=== PATIENT | female | born 1990 | race Caucasian/White ===

== ENCOUNTER 2019-04-05 09:06 | Emergency (ER) | payer MEDICAID ==
[~2019-04-05] VITALS: Ht 154.9 cm; Wt 48.2 kg
[~2019-04-05 09:06] MED LIST: CEPH-443 PO; HDRP454O TOP; PRENAT PO
[2019-04-05 09:10] VITALS: BP 97/54; PULSE 71; RESP 18; Ht 154.9 cm; Wt 48.2 kg
[2019-04-05] MEDS ORDERED: TETRACAINE 0.5% 4 ML OPH LEFT EYE ONE (10:00)
[2019-04-05] MEDS ORDERED: FLUORESCEIN STRIP LEFT EYE ONE (10:00)
[2019-04-05] MEDS ORDERED: POLY10DR19 LEFT EYE (10:49)
[2019-04-05] MEDS ORDERED: IBUP-1561 PO (10:49)
[2019-04-05] MEDS ORDERED: ERYT1OIN6 LEFT EYE (10:54)
[2019-04-05] MEDS ORDERED: ACET325T33 PO (11:19)
--- NOTE | 2019-04-05 14:27 | ERD ---
ER Documentation Chief Complaint Chief Complaint c/o left eye redness, eyelid swelling with itching for 4 days HPI This is a 28-year-old female patient who presents the emergency room with complaint of left eyelid redness that has increased in severity over 4 days. Started with itching to eyelid and now has redness and swelling. Patient denies any visual disturbance such as blurred vision, double vision, pain. Patient states eyelid is painful but does not feel like there is anything in her eye and no pain to her eyeball. Patient is 4 months . ROS All systems reviewed and are negative except as per history of present illness. Medications Home Meds Active Scripts Acetaminophen* (Tylenol*) 325 Mg Tablet, 2 TAB PO Q6 PRN for PAIN AND OR ELEVATED TEMP, #20 TAB Prov:MICHELLE RAND NP 04/05/19 Erythromycin Base (Erythromycin) 1 Gm Oint...g., 1 APPLIC LEFT EYE QHS for blepharitis for 14 Days, #3.5 G apply to left eyelid margin at bedtime for 1-2 weeks Prov:MICHELLE RAND NP 04/05/19 Hydrophilic Base* (Aquaphor*) 454 Gm-Topical Oint, 1 APPLIC TOP BID for 10 Days, #1 JAR Prov:SORAIDA GONSALVES PA-C 05/20/16 Cephalexin* (Keflex*) 500 Mg Capsule, 500 MG PO QID for 7 Days, CAP Prov:SORAIDA GONSALVES PA-C 05/20/16 Reported Medications Multivit/Min/Fol Ac/Iron/Pren* ( S*) 1 Tab Tab, 1 TAB PO DAILY, TAB 11/24/15 Discontinued Scripts Ibuprofen* (Motrin*) 400 Mg Tab, 400 MG PO Q6 for pain for 7 Days, #30 TAB Prov:MICHELLE RAND NP 04/05/19 Polymyxin B Sulfate-TMP* (Polymyxin B-TMP Eye Drops*) 10 Ml Drops, 1 DROP LEFT EYE QID for 7 Days, #5 ML Prov:MICHELLE RAND NP 04/05/19 Allergies Allergies: Coded Allergies: No Known Allergy (Unverified , 08/13/15) PMhx/Soc Medical and Surgical Hx: pt denies Medical Hx History of Surgery: No Anesthesia Reaction: No Hx Neurological Disorder: No Hx Respiratory Disorders: No Hx Cardiac Disorders: No Hx Psychiatric Problems: No Hx Miscellaneous Medical Probl: No Hx Alcohol Use: No Hx Substance Use: No Hx Tobacco Use: No FmHx Family History: No diabetes, No coronary disease, No other Physical Exam Vitals Vital Signs Date Temp Pulse Resp B/P (MAP) Pulse Ox O2 O2 Flow FiO2 Time Delivery Rate 04/05/19 97.5 71 18 97/54 (68) 100 09:10 Physical Exam Const: No acute distress Head: Atraumatic Eyes: Normal Conjunctiva, sclera white, +erythema to left eyelid, no drainage, EOMI, PERRL ENT: Normal External Ears, Nose and Mouth. Neck: Full range of motion. No meningismus. Lymphadenopathy Resp: Clear to auscultation bilaterally Cardio: Regular rate and rhythm, no murmurs Neur: Awake and alert Psych: Normal Mood and Affect Results 24 hrs Current Medications Medications Dose Sig/Kehsa Start Time Status Last (Trade) Ordered Route PRN Stop Time Admin Dose Reason Admin Tetracaine 1 drop ONCE ONCE 04/05/19 DC HCl LEFT EYE 10:00 (Tetracaine 04/05/19 10:01 0.5% Steri-Unit Danette) Fluorescein 1 strip ONCE ONCE 04/05/19 DC Sodium LEFT EYE 10:00 (Favdh-V-Loyg 04/05/19 10:01 p) Procedures/MDM PROCEDURES/MDM PROCEDURES: Visual Acuity OS: 20/30 OD: 20/40 OU: 20/30 Fluorescein and dukes lamp negative for corneal abrasion, ulcer, laceration. No FB observed. MDM: Is a 28-year-old female patient who presents emergency room with a blepharitis to left eyelid increasing in severity over 4 days. Clinical exam negative for eye injury including corneal laceration or abrasion, herpetic infection, periorbital cellulitis. This patients soft tissue infection appears to be appropriate for outpatient treatment with close follow-up for reevaluation by a clinician within 24-48 hours. A serious, rapidly progressive infectious process is unlikely based upon the patients presentation and appearance of the infection. Antibiotic treatment has been initiated here and response to treatment will be based on reassessment at close follow-up. The patient has been instructed on signs and symptoms of acute progression of infection and to return immediately if any of these occur. DISPOSITION and PLAN: RX: Erythromycin ointment, Tylenol The patient has been discharge home to follow-up with community physician. Departure Diagnosis: Primary Impression: Blepharitis of eyelid of left eye Condition: Stable Patient Instructions: Blepharitis Ref[facility]: [facility] Usted se caraballo hecho un examen mdico de control que le indica que no est en zain condicin que requiera tratamiento urgente en el Departamento de Emergencia. Un estudio ms profundo y el tratamiento de fine condicin pueden esperar sin ningn riesgo hasta que usted sea atendida/o en el consultorio de fine mdico o zain clnica. Es responsabilidad suya arreglar zain migue para el seguimiento del anna. MANEJO DE CONDICIONES NO URGENTES EN EL FUTURO 1) Si usted tiene un mdico de atencin primaria: Usted debera llamar a fine mdico de atencin primaria antes de venir al departamento de emergencia. Despus de las horas de consultorio, fine doctor o fine asociado/a est disponible por telfono. El mdico o enfermero de dylan en el servicio telefnico puede asesorarle por luz maria medio para atender el problema, o anna contrario se puede programar zain migue. 2) Si usted no tiene un mdico de atencin primaria: Llame al mdico o clnica de referencia que aparece abajo abby las horas de consultorio para hacer zain migue para que le vean. CLINICAS: [facility] [phone] [facility] [phone] [facility] [phone] [facility] [phone] [address] [facility] [address] [facility] [phone] [address] [phone] [address] [facility] () Usted se caraballo hecho un examen mdico de control que le indica que no est en zain condicin que requiera tratamiento urgente en el Departamento de Emergencia. Un estudio ms profundo y el tratamiento de fine condicin pueden esperar sin ningn riesgo hasta que usted sea atendida/o en el consultorio de fine mdico o zain clnica. Es responsabilidad suya arreglar zain migue para el seguimiento del anna. MANEJO DE CONDICIONES NO URGENTES EN EL FUTURO 1) Si usted tiene un mdico de atencin primaria: Usted debera llamar a fine mdico de atencin primaria antes de venir al departamento de emergencia. Despus de las horas de consultorio, fine doctor o fine asociado/a est disponible por telfono. El mdico o enfermero de dylan en el servicio telefnico puede asesorarle por luz maria medio para atender el problema, o anna contrario se puede programar zain migue. 2) Si usted no tiene un mdico de atencin primaria: Llame al mdico o condado institucions de referencia que aparece abajo abby las horas de consultorio para hacer zain migue para que le vean. SI USTED NO PUEDE PAGAR PARA ASHLEY UN MEDICO puede ir a: [facility] [address] [place] [address] [facility] [address] [place] [address] [facility] [address] [place] [address] [facility] [address] [place], [place] [id number] Additional Instructions: Thank you very much for allowing us to participate in your care. Your health and safety is our top priority at [facility]. Call your primary care doctor TOMORROW for an appointment during the next 2-4 days and bring all the information and medications prescribed. Have prescriptions filled and follow precisely the directions on the label. If the symptoms get worse and your provider is unavailable, return to the Emergency Department immediately. USE ERYTHROMYCIN OINTMENT TO LEFT EYELID MARGIN AT BEDTIME FOR 1 TO 2 WEEKS. APPLY WARM COMPRESSES TO LOOSEN ANY CRUSTED DEBRIS, USE COOL COMPRESS FOR PAIN RELIEF AND COMFORT. YOU MAY ALSO USE IBUPROFEN FOR PAIN RELIEF. RETURN TO THE EMERGENCY ROOM WITH ANY CHANGE IN VISION, SPREADING OF REDNESS AND SWELLING TO EYELIDS. MICHELLE RAND NP Apr 05, 2019 14:27
== END 2019-04-05 11:24 | disposition home or self-care (01) ==
LOC: FTE 09:06
DX: H01.006 Unspecified blepharitis left eye, unspecified eyelid (principal)
CPT/HCPCS: Z7502; Z7610; 99283